=== PATIENT | male | born 1955 | race Caucasian/White ===

== ENCOUNTER 2016-12-06 16:24 | Emergency (ER) | payer OTHER ==
--- NOTE | 2016-12-06 17:46 | DIAGNOSTIC IMAGING REPORT ---
PROCEDURE: XR HAND 3 OR 4 VIEWS - LEFT INDICATION: TRAUMA/INJURY TECHNIQUE: Four views. COMPARISON: None. FINDINGS: No fracture dislocation. Punctate radiopaque foreign bodies in the tip of the index finger. There is diffuse mild soft tissue swelling of the second finger. 1.5 mm round metallic foreign body along the lateral aspect of the second MCP joint and 5 mm linear metallic foreign body in the hypothenar eminence. IMPRESSION: 1. No fracture 2. Several foreign bodies
--- NOTE | 2016-12-06 18:05 | ED NURSING NOTES ---
Clinical Report - Nurses [facility] [address] [place] [address] 12/06/2016 16:25 Patient: ANGELY MCKEON TRIAGE Triage time 16:38 Dec 06 2016. Acuity: LEVEL 3. Chief Complaint: INJURY TO LEFT HAND. Alert. No acute distress. --16:43 Sonny Casillas R.N. 16:38 12/06/16. BP: 158/90. HR: 80. RR: 16. O2 saturation: 95% on room air. Temp: 98.2 F. Pain level now: 02/15. --16:43 Sonny Casillas R.N. Weight: 108.8 kg stated. Height/Length: 72 inches Per Patient. BMI: 32.6. --16:38 Sonny Casillas R.N. Medications Meloxicam Oral. --16:40 Sonny Casillas R.N. Atorvastatin Calcium Oral. --16:40 Sonny Casillas R.N. Levothyroxine Sodium Oral. --16:40 Sonny Casillas R.N. Allergies No Known Drug Allergy. --16:40 Sonny Casillas R.N. History Arrived by private vehicle. Historian: patient. This occurred just prior to arrival and today. 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 PAST MEDICAL HX: Tetanus status: unknown. Immunizations: up-to-date. SOCIAL HX: Never smoker. No alcohol use or drug use. No infectious disease exposure. FALL RISK ASSESSMENT: Fall risk assessment completed. No fall risk identified. NUTRITIONAL RISK ASSESSMENT: The nutritional risk assessment revealed no deficiencies. FUNCTIONAL ASSESSMENT: Functional assessment: no impairments noted. LEARNING NEEDS ASSESSMENT: The learning needs assessment revealed no barriers. SKIN INTEGRITY ASSESSMENT: Skin integrity risk assessment completed. No skin integrity risk identified. --16:43 Sonny Casillas R.N. PROBLEMS: Chest Wall Pain. Hyperlipidemia. Thyroid Disease. Immunizations. Hypercholesterolemia. Pulmonary pnuemontis. --16:41 Sonny Casillas R.N. Hip arthritis. --16:42 Sonny Casillas R.N. Macular Degeneration. --17:33 Sonny Casillas R.N. ADDITIONAL SURGERIES: Rhinoplasty. Shoulder Surgery. Tonsillectomy. --16:41 Sonny Casillas R.N. Interventions ID band on patient. To treatment room. --16:43 Sonny Casillas R.N. PHYSICAL ASSESSMENT Ambulatory to room. GENERAL / NEURO / PSYCH: Oriented X 4. Appears in pain. EXTREMITIES: Capillary refill is less than 2 seconds in the extremities. Extremity pulses are within normal limits. Left hand: laceration with controlled bleeding localized to the dorsal aspect of the hand. ( Pt lacks posterior movement of the L index finger). SKIN: Skin is warm and dry. Large-sized laceration to left hand. --16:45 Sonny Casillas R.N. NURSING PROGRESS NOTES The plan of care for this patient has been created. Extremity elevated. Reassurance given. Wound cleansed with sterile saline and Hibiclens. Patient identifiers checked. Call light placed in reach. Side rails up. Patient ready for evaluation- PA notified. ( PA at bedside assessing Pt.). --16:45 Sonny Casillas R.N. 16:53 12/06/2016 Site #1 started via IV in the right antecubital space with an 20g angiocath; one attempt. Saline lock flushed with 10 mL saline. --16:53 Sonny Casillas R.N. Patient transported to radiology by stretcher with tech. --16:53 Sonny Casillas R.N. 17:03 12/06/2016 Lidocaine-Epinephrine (Lidocaine-Epinephrine) Injection Injectable 2 % given. Allergies verified and confirmed 5 rights. (L hand lac site given by PA). --17:18 Sonny Casillas R.N. 17:13 12/06/2016 TDAP IM 0.5 mL given. (Lot#: [id number], expiration date: 11/16/2018, Assembling Motor Builder: sanofi pasteur). Given in the right deltoid. Allergies verified and confirmed 5 rights. --17:13 Sonny Casillas R.N. 17:17 12/06/2016 Toradol IV 30 mg (NOW) was refused by patient because of concern over the side effects. Sonny Casillas --17:17 Sonny Casillas R.N. Patient returned from radiology by stretcher with tech. (17:10 Dec 06 2016). --17:18 Sonny Casillas R.N. ( Pt refusing Toradol d/t hx of Macular Degeneration and bleeding in his eyes.). --17:19 Sonny Casillas R.N. ( Paged Dr. Benito for P.A. [phone]). --17:21 Brittani Cari, ER Tech1 Wound irrigated with 1000 mL sterile NS; patient tolerated procedure well. --17:24 Eleazar Babb, ER Tech1 17:25 12/06/16. BP: 129/92. HR: 79. RR: 18. O2 saturation: 97% on room air. Pain level now: 02/15. --17:26 Sonny Casillas R.N. 17:30 12/06/2016 Dilaudid (HYDROmorphone HCl PF) IVP 1 mg given over 2 minute(s) via site #1. Allergies verified, confirmed 5 rights and sedative warning given to the patient. IV patency established. IV site checked: no pain, redness, or swelling. IV flushed thoroughly pre- and post-medication administration. IVP given by RN. --17:30 Sonny Casillas R.N. 17:56 12/06/2016 Started 2 gm of Ancef (CeFAZolin Sodium) IVPB in bag #1 50 mL; at 100 mL/hr over 30 minute(s) via site #1 via IV pump. Allergies verified and confirmed 5 rights. IV patency established. IV site checked: no pain, redness, or swelling. IV flushed thoroughly pre- and post-medication administration. Completed per protocol. --17:56 Sonny Casillas R.N. 17:56 12/06/2016 Dilaudid IVP Response: no adverse reaction pain is improving. Symptoms have improved. --17:56 Sonny Casillas R.N. 17:56 12/06/16. Pain level now: 09/15. --17:56 Sonny Casillas R.N. 18:12 12/06/2016 TDAP IM Response: no adverse reaction. --18:12 Sonny Casillas R.N. 18:16 12/06/2016 Lidocaine-Epinephrine Injection Response: no adverse reaction. --18:16 Sonny Casillas R.N. Applied clean dressing consisting of telfa pad, following the application of antibiotic ointment (bacitracin). Secured with tape and kerlix. --18:28 Sarkis Babbah, Tech1 Volar fiberglass upper extremity splint applied to left hand by tech. Distal pulses intact, sensation intact and motor within normal limits. --18:29 Sarkis Babbah, ER Tech1 18:22 12/06/2016 Ancef IVPB Discontinued: bag #1 infused upon discharge. Total amount infused: 100 mL. IV patency established. IV site checked: no pain, redness, or swelling. IV flushed thoroughly. --18:32 Sonny Casillas R.N. 18:27 12/06/2016 Site #1 removed upon discharge. Bandage applied. --18:32 Sonny Casillas R.N. DISPOSITION / DISCHARGE 18:13 12/06/16. BP: 151/96. HR: 62. RR: 16. O2 saturation: 95% on room air. Temp: unable to obtain. Pain level now: 09/15. --18:15 Sonny Casillas R.N. Condition at departure: improved and stable. The goals identified in the patient's plan of care were met. No learning barriers present. Discharge instructions provided and reviewed with the patient and family. Reviewed warnings (Pt instructed not to drive or consume ETOH while taking Hydrocodone.). Reviewed medication(s) side effects, precautions, dosing and course information. Prescription(s) given to the patient (Clindamycin and Hydrocodone). Reviewed referral to a hand surgeon for followup (Dr. Benito). Patient and family verbalized understanding. Written instructions provided in Serbian. The patient was discharged home and accompanied by table runner. He left the Emergency Department ambulatory and via private vehicle. Transition Of Care Specialist driving. ( Pt left in stable condition, ambulatory, pain controlled, verbalized understanding of DC plan of care. Ride home present for DC teaching.). --18:32 Sonny Casillas R.N. Departure time: 18:30 Dec 06 2016. --18:32 Sonny Casillas R.N. Locked/Released at 12/06/2016 19:22 by Sonny Casillas R.N.
--- NOTE | 2016-12-06 18:05 | ED CLINICAL REPORT ---
Clinical Report - Physicians/Mid Levels [facility] [address] [place] [address] 12/06/2016 16:25 [id number] Time Seen: 17:05 Dec 06 2016. Arrived- By private vehicle. Historian- patient. HISTORY OF PRESENT ILLNESS Chief Complaint: Injury to the left hand. The injury happened just prior to arrival. Occurred at home. The patient sustained a laceration. Patient is experiencing mild pain. 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 No prior injury to the dorsal hand. Unsure last tetanus. Believes he may have sustained an injury to his tendon). REVIEW OF SYSTEMS The patient sustained a laceration. He has had numbness. No tingling. All systems otherwise negative, except as recorded above. PAST HISTORY The patient's dominant hand is the right. He has not had a prior injury to the same area. Tetanus immunization status is unknown. SOCIAL HISTORY Never smoker. No alcohol use or drug use. ADDITIONAL NOTES The nursing notes have been reviewed. PHYSICAL EXAM Vital Signs: 12/06/2016 16:38 BP: 158/90. HR: 80. RR: 16. O2 saturation: 95%. Temp: 98.2 F. Pain level now: 8/10. Appearance: Alert. No acute distress. Head: Head atraumatic. CVS: Normal heart rate and rhythm. Heart sounds normal. Respiratory: No respiratory distress. Breath sounds normal. Skin: Skin warm. Extremities: Dorsal left hand: 2.0 cm laceration of the radial aspect of the dorsal hand. Limited extension of the index finger secondary to weakness. Neurovascular intact distally. No puncture wound or foreign body. Soft tissue tenderness present. No bony tenderness. No signs of infection present. Neuro, Vascular and Tendons: Vascular status intact. Functional tendon deficit. Complete extensor tendon injury seen in left index finger. Neuro: Oriented X 3. PROGRESS AND PROCEDURES Laceration Repair: Time: 1800 Dec 06 2016. Location: (left hand). Time-out completed immediately before the procedure. Length: 2.0cm. Complexity: simple (local anesthesia used and sutured). Neuro/vascular/tendon status: motor deficit present distally. Tendon deficit present. Tendon injury and laceration present. No sensory deficit or vascular deficit distally. Local anesthesia provided using 1% lidocaine with epi. Prepped with Betadine. Wound explored, cleansed and irrigated extensively with normal saline. Subcutaneous closure: interrupted 5-0 (4, non absorb). Post-procedure: he is stable and there are no complications. Bleeding is controlled and neuro-vascular status is intact distal to the wound. Dressing applied. Tetanus immunization given. Splint Application: Time: 18:17 Dec 06 2016. Fiberglass volar splint applied to left hand. Splint applied with direct supervision by me. Reassessed extremity following splint application. Neurovascular intact. Follow-up recommended for tomorrow. Course of Care: patient with a tendon injury, with good distal sensation. With good perfusion. No signs of fracture overlying the site of laceration. Patient given antibiotics in the emergency department. Discussed case with Dr. Coombs, or so inventory control/shipping receiving, who reports he does not operate on and hands. Discussed case with Dr. Benito, who will see the patient tomorrow. 12/06/2016 18:13 BP: 151/96. HR: 62. RR: 16. O2 saturation: 95%. Pain level now: 3/10. 12/06/2016 17:56 Pain level now: 310. Patient is stable. Symptoms better. Patient/family counseled. Disposition: Discharged. Condition: good. CLINICAL IMPRESSION Complete tendon laceration of the left extensor of the second finger. Laceration is at the level of the hand. No infection present or foreign body present. INSTRUCTIONS Elevate affected areas above chest level. (call Dr. Benito office tomorrow morning [phone]). Warnings: TETANUS: You were given a tetanus shot during your visit. Make a note for future reference. Prescription Medications: Hydrocodone/APAP 5mg / 325mg: take 1 orally every 6 hours as needed for pain. Dispense twenty (20). No refill. Clindamycin 300 mg: take 1 capsule orally every 8 hours for 10 days. No refill. (Electronically signed by Melinda Ko P.A.-C 12/06/2016 18:20)
--- NOTE | 2016-12-06 18:05 | ED CLINICAL REPORT ---
Clinical Report - Physicians/Mid Levels [facility] [address] [place] [address] 12/06/2016 16:25 [id number] Time Seen: 17:05 Dec 06 2016. Arrived- By private vehicle. Historian- patient. HISTORY OF PRESENT ILLNESS Chief Complaint: Injury to the left hand. The injury happened just prior to arrival. Occurred at home. The patient sustained a laceration. Patient is experiencing mild pain. 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 No prior injury to the dorsal hand. Unsure last tetanus. Believes he may have sustained an injury to his tendon). REVIEW OF SYSTEMS The patient sustained a laceration. He has had numbness. No tingling. All systems otherwise negative, except as recorded above. PAST HISTORY The patient's dominant hand is the right. He has not had a prior injury to the same area. Tetanus immunization status is unknown. SOCIAL HISTORY Never smoker. No alcohol use or drug use. ADDITIONAL NOTES The nursing notes have been reviewed. PHYSICAL EXAM Vital Signs: 12/06/2016 16:38 BP: 158/90. HR: 80. RR: 16. O2 saturation: 95%. Temp: 98.2 F. Pain level now: 8/10. Appearance: Alert. No acute distress. Head: Head atraumatic. CVS: Normal heart rate and rhythm. Heart sounds normal. Respiratory: No respiratory distress. Breath sounds normal. Skin: Skin warm. Extremities: Dorsal left hand: 2.0 cm laceration of the radial aspect of the dorsal hand. Limited extension of the index finger secondary to weakness. Neurovascular intact distally. No puncture wound or foreign body. Soft tissue tenderness present. No bony tenderness. No signs of infection present. Neuro, Vascular and Tendons: Vascular status intact. Functional tendon deficit. Complete extensor tendon injury seen in left index finger. Neuro: Oriented X 3. PROGRESS AND PROCEDURES Laceration Repair: Time: 1800 Dec 06 2016. Location: (left hand). Time-out completed immediately before the procedure. Length: 2.0cm. Complexity: simple (local anesthesia used and sutured). Neuro/vascular/tendon status: motor deficit present distally. Tendon deficit present. Tendon injury and laceration present. No sensory deficit or vascular deficit distally. Local anesthesia provided using 1% lidocaine with epi. Prepped with Betadine. Wound explored, cleansed and irrigated extensively with normal saline. Subcutaneous closure: interrupted 5-0 (4, non absorb). Post-procedure: he is stable and there are no complications. Bleeding is controlled and neuro-vascular status is intact distal to the wound. Dressing applied. Tetanus immunization given. Splint Application: Time: 18:17 Dec 06 2016. Fiberglass volar splint applied to left hand. Splint applied with direct supervision by me. Reassessed extremity following splint application. Neurovascular intact. Follow-up recommended for tomorrow. Course of Care: patient with a tendon injury, with good distal sensation. With good perfusion. No signs of fracture overlying the site of laceration. Patient given antibiotics in the emergency department. Discussed case with Dr. Coombs, or so strong nitric operator, who reports he does not operate on and hands. Discussed case with Dr. Benito, who will see the patient tomorrow. 12/06/2016 18:13 BP: 151/96. HR: 62. RR: 16. O2 saturation: 95%. Pain level now: 3/10. 12/06/2016 17:56 Pain level now: 310. Patient is stable. Symptoms better. Patient/family counseled. Disposition: Discharged. Condition: good. CLINICAL IMPRESSION Complete tendon laceration of the left extensor of the second finger. Laceration is at the level of the hand. No infection present or foreign body present. INSTRUCTIONS Elevate affected areas above chest level. (call Dr. Benito office tomorrow morning [phone]). Warnings: TETANUS: You were given a tetanus shot during your visit. Make a note for future reference. Prescription Medications: Hydrocodone/APAP 5mg / 325mg: take 1 orally every 6 hours as needed for pain. Dispense twenty (20). No refill. Clindamycin 300 mg: take 1 capsule orally every 8 hours for 10 days. No refill. (Electronically signed by Melinda Ko P.A.-C 12/06/2016 18:20)
--- NOTE | 2016-12-06 18:05 | ED NURSING NOTES ---
Clinical Report - Nurses [facility] [address] [place] [place] [address] 12/06/2016 16:25 Patient: ANGELY MCKEON TRIAGE Triage time 16:38 Dec 06 2016. Acuity: LEVEL 3. Chief Complaint: INJURY TO LEFT HAND. Alert. No acute distress. --16:43 Sonny Casillas R.N. 16:38 12/06/16. BP: 158/90. HR: 80. RR: 16. O2 saturation: 95% on room air. Temp: 98.2 F. Pain level now: 02/15. --16:43 Sonny Casillas R.N. Weight: 108.8 kg stated. Height/Length: 72 inches Per Patient. BMI: 32.6. --16:38 Sonny Casillas R.N. Medications Meloxicam Oral. --16:40 Sonny Casillas R.N. Atorvastatin Calcium Oral. --16:40 Sonny Casillas R.N. Levothyroxine Sodium Oral. --16:40 Sonny Casillas R.N. Allergies No Known Drug Allergy. --16:40 Sonny Casillas R.N. History Arrived by private vehicle. Historian: patient. This occurred just prior to arrival and today. 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 PAST MEDICAL HX: Tetanus status: unknown. Immunizations: up-to-date. SOCIAL HX: Never smoker. No alcohol use or drug use. No infectious disease exposure. FALL RISK ASSESSMENT: Fall risk assessment completed. No fall risk identified. NUTRITIONAL RISK ASSESSMENT: The nutritional risk assessment revealed no deficiencies. FUNCTIONAL ASSESSMENT: Functional assessment: no impairments noted. LEARNING NEEDS ASSESSMENT: The learning needs assessment revealed no barriers. SKIN INTEGRITY ASSESSMENT: Skin integrity risk assessment completed. No skin integrity risk identified. --16:43 Sonny Casillas R.N. PROBLEMS: Chest Wall Pain. Hyperlipidemia. Thyroid Disease. Immunizations. Hypercholesterolemia. Pulmonary pnuemontis. --16:41 Sonny Casillas R.N. Hip arthritis. --16:42 Sonny Casillas R.N. Macular Degeneration. --17:33 Sonny Casillas R.N. ADDITIONAL SURGERIES: Rhinoplasty. Shoulder Surgery. Tonsillectomy. --16:41 Sonny Casillas R.N. Interventions ID band on patient. To treatment room. --16:43 Sonny Casillas R.N. PHYSICAL ASSESSMENT Ambulatory to room. GENERAL / NEURO / PSYCH: Oriented X 4. Appears in pain. EXTREMITIES: Capillary refill is less than 2 seconds in the extremities. Extremity pulses are within normal limits. Left hand: laceration with controlled bleeding localized to the dorsal aspect of the hand. ( Pt lacks posterior movement of the L index finger). SKIN: Skin is warm and dry. Large-sized laceration to left hand. --16:45 Sonyn Casillas R.N. NURSING PROGRESS NOTES The plan of care for this patient has been created. Extremity elevated. Reassurance given. Wound cleansed with sterile saline and Hibiclens. Patient identifiers checked. Call light placed in reach. Side rails up. Patient ready for evaluation- PA notified. ( PA at bedside assessing Pt.). --16:45 Sonny Casillas R.N. 16:53 12/06/2016 Site #1 started via IV in the right antecubital space with an 20g angiocath; one attempt. Saline lock flushed with 10 mL saline. --16:53 Sonny Casillas R.N. Patient transported to radiology by stretcher with tech. --16:53 Sonny Casillas R.N. 17:03 12/06/2016 Lidocaine-Epinephrine (Lidocaine-Epinephrine) Injection Injectable 2 % given. Allergies verified and confirmed 5 rights. (L hand lac site given by PA). --17:18 Sonny Casillas R.N. 17:13 12/06/2016 TDAP IM 0.5 mL given. (Lot#: [id number], expiration date: 11/16/2018, Circuit Design Engineer: sanofi pasteur). Given in the right deltoid. Allergies verified and confirmed 5 rights. --17:13 Sonny Casillas R.N. 17:17 12/06/2016 Toradol IV 30 mg (NOW) was refused by patient because of concern over the side effects. Sonny Casillas --17:17 Sonny Casillas R.N. Patient returned from radiology by stretcher with tech. (17:10 Dec 06 2016). --17:18 Sonny Casillas R.N. ( Pt refusing Toradol d/t hx of Macular Degeneration and bleeding in his eyes.). --17:19 Sonny Casillas R.N. ( Paged Dr. Benito for P.A. [phone]). --17:21 Brittani Cari, ER Tech1 Wound irrigated with 1000 mL sterile NS; patient tolerated procedure well. --17:24 Eleazar Babb, ER Tech1 17:25 12/06/16. BP: 129/92. HR: 79. RR: 18. O2 saturation: 97% on room air. Pain level now: 02/15. --17:26 Sonny Casillas R.N. 17:30 12/06/2016 Dilaudid (HYDROmorphone HCl PF) IVP 1 mg given over 2 minute(s) via site #1. Allergies verified, confirmed 5 rights and sedative warning given to the patient. IV patency established. IV site checked: no pain, redness, or swelling. IV flushed thoroughly pre- and post-medication administration. IVP given by RN. --17:30 Sonny Casillas R.N. 17:56 12/06/2016 Started 2 gm of Ancef (CeFAZolin Sodium) IVPB in bag #1 50 mL; at 100 mL/hr over 30 minute(s) via site #1 via IV pump. Allergies verified and confirmed 5 rights. IV patency established. IV site checked: no pain, redness, or swelling. IV flushed thoroughly pre- and post-medication administration. Completed per protocol. --17:56 Sonny Casillas R.N. 17:56 12/06/2016 Dilaudid IVP Response: no adverse reaction pain is improving. Symptoms have improved. --17:56 Sonny Casillas R.N. 17:56 12/06/16. Pain level now: 09/15. --17:56 Sonny Casillas R.N. 18:12 12/06/2016 TDAP IM Response: no adverse reaction. --18:12 Sonny Casillas R.N. 18:16 12/06/2016 Lidocaine-Epinephrine Injection Response: no adverse reaction. --18:16 Sonny Casillas R.N. Applied clean dressing consisting of telfa pad, following the application of antibiotic ointment (bacitracin). Secured with tape and kerlix. --18:28 Sarkis Babbah, Tech1 Volar fiberglass upper extremity splint applied to left hand by tech. Distal pulses intact, sensation intact and motor within normal limits. --18:29 Sarkis Babbah, ER Tech1 18:22 12/06/2016 Ancef IVPB Discontinued: bag #1 infused upon discharge. Total amount infused: 100 mL. IV patency established. IV site checked: no pain, redness, or swelling. IV flushed thoroughly. --18:32 Sonny Casillas R.N. 18:27 12/06/2016 Site #1 removed upon discharge. Bandage applied. --18:32 Sonny Casillas R.N. DISPOSITION / DISCHARGE 18:13 12/06/16. BP: 151/96. HR: 62. RR: 16. O2 saturation: 95% on room air. Temp: unable to obtain. Pain level now: 09/15. --18:15 Sonny Casillas R.N. Condition at departure: improved and stable. The goals identified in the patient's plan of care were met. No learning barriers present. Discharge instructions provided and reviewed with the patient and family. Reviewed warnings (Pt instructed not to drive or consume ETOH while taking Hydrocodone.). Reviewed medication(s) side effects, precautions, dosing and course information. Prescription(s) given to the patient (Clindamycin and Hydrocodone). Reviewed referral to a hand surgeon for followup (Dr. Benito). Patient and family verbalized understanding. Written instructions provided in Kyrgyz. The patient was discharged home and accompanied by tool lathe operator. He left the Emergency Department ambulatory and via private vehicle. Recreation Technician driving. ( Pt left in stable condition, ambulatory, pain controlled, verbalized understanding of DC plan of care. Ride home present for DC teaching.). --18:32 Sonny Casillas R.N. Departure time: 18:30 Dec 06 2016. --18:32 Sonny Casillas R.N. Locked/Released at 12/06/2016 19:22 by Sonny Casillas R.N.
--- NOTE | 2016-12-06 18:05 | ED ORDER SUMMARY ---
..... Patient: ANGELY MCKEON OrderSheet [facility] VisitID: [id number] [place] [address] 61y, M Registration Date/Time: 12/06/2016 ORDER SHEET Weight: 108.8 kg (stated) Allergies: No Known Drug Allergy GENERAL ORDERS: Hand 3 or 4V Left Urgent (16:50 12/06/2016 EKoroleva P.A.-C) (Ack 16:56 LNations ER Tech1) (16:59 RFay) Splint (UE) (Left) (volar) (17:46 12/06/2016 EKoroleva P.A.-C) (17:57 MCook R.N.) MEDICATION ORDERS: Lidocaine-Epinephrine Injection 2 % (soln) (NOW, place at bedside, with syringes & needles) (16:46 12/06/2016 EKoroleva P.A.-C) (Ack 16:53 MCook R.N.) (17:18 MCook R.N.) Tdap IM 0.5 mL (NOW, per protocol) (16:50 12/06/2016 EKoroleva P.A.-C) (Ack 16:53 MCook R.N.) (17:13 MCook R.N.) IV FLUIDS: Toradol IV 30 mg (NOW) (16:50 12/06/2016 EKoroleva P.A.-C) (Ack 16:53 MCook R.N.) (Cancelled: Patient Hnotcuw16:22 MCook R.N.) Ancef IV 2 gm/100mL (NOW) (17:24 12/06/2016 EKoroleva P.A.-C) (Ack 17:34 MCook R.N.) (17:56 MCook R.N.) Dilaudid IV 1 mg (HIGH ALERT MEDICATION, NOW) (17:24 12/06/2016 EKoroleva P.A.-C) (17:30 MCook R.N.) ORDER SHEET NOTES: [Electronically signed by Melinda KoADimas (18:20 12/06/2016)] [Electronically signed by Sonny Casillas R.N. (12/06/2016)] [Electronically locked/signed by Sonny Casillas R.N. (12/06/2016)]
--- NOTE | 2016-12-06 18:05 | ED ORDER SUMMARY ---
..... Patient: ANGELY MCKEON OrderSheet [facility] VisitID: [id number] [place] [address] 61y, M Registration Date/Time: 12/06/2016 ORDER SHEET Weight: 108.8 kg (stated) Allergies: No Known Drug Allergy GENERAL ORDERS: Hand 3 or 4V Left Urgent (16:50 12/06/2016 EKoroleva P.A.-C) (Ack 16:56 LNations ER Tech1) (16:59 RFay) Splint (UE) (Left) (volar) (17:46 12/06/2016 EKoroleva P.A.-C) (17:57 MCook R.N.) MEDICATION ORDERS: Lidocaine-Epinephrine Injection 2 % (soln) (NOW, place at bedside, with syringes & needles) (16:46 12/06/2016 EKoroleva P.A.-C) (Ack 16:53 MCook R.N.) (17:18 MCook R.N.) Tdap IM 0.5 mL (NOW, per protocol) (16:50 12/06/2016 EKoroleva P.A.-C) (Ack 16:53 MCook R.N.) (17:13 MCook R.N.) IV FLUIDS: Toradol IV 30 mg (NOW) (16:50 12/06/2016 EKoroleva P.A.-C) (Ack 16:53 MCook R.N.) (Cancelled: Patient Lkxovct81:22 MCook R.N.) Ancef IV 2 gm/100mL (NOW) (17:24 12/06/2016 EKoroleva P.A.-C) (Ack 17:34 MCook R.N.) (17:56 MCook R.N.) Dilaudid IV 1 mg (HIGH ALERT MEDICATION, NOW) (17:24 12/06/2016 EKoroleva P.A.-C) (17:30 MCook R.N.) ORDER SHEET NOTES: [Electronically signed by Melinda KoADimas (18:20 12/06/2016)] [Electronically signed by Sonny Casillas R.N. (12/06/2016)] [Electronically locked/signed by Sonny Casillas R.N. (12/06/2016)]
--- NOTE | 2016-12-06 19:23 | ED MAR SUMMARY ---
..... Medication Administration Record [facility] [address] [place] [address] Patient: ANGELY MCKEON Visit ID: [id number] 61y, M Weight: 108.8 kg Height/Length: 72 in BMI: 32.6 ALLERGIES: No Known Drug Allergy Given 17:03 12/06/2016 Sonny Casillas R.N. Medication Administered: LIDOCAINE-EPINEPHRINE [INJECTION] (LIDOCAINE-EPINEPHRINE), Dose: 2 % Injectable Injection. Medication Ordered: Lidocaine-Epinephrine Injection 2 % (soln) (NOW, place at bedside, with syringes & needles). Given 17:13 12/06/2016 Sonny Casillas R.N. Medication Administered: TDAP [IM], Dose: 0.5 mL IM. Medication Ordered: Tdap IM 0.5 mL (NOW, per protocol). Given 17:30 12/06/2016 Sonny Casillas R.N. Medication Administered: DILAUDID [IVP] (HYDROMORPHONE HCL PF), Dose: 1 mg IVP over 2 minute(s), Site: #1 right AC. Medication Ordered: Dilaudid IV 1 mg (HIGH ALERT MEDICATION, NOW). Start 17:56 12/06/2016 Sonny Casillas R.N., Stop 18:22 12/06/2016 Sonny Casillas R.N. Medication Administered: ANCEF [IVPB] (CEFAZOLIN SODIUM), Dose: 2 gm IVPB over 30 minute(s), Rate: 100 mL/hr, Dispensed: 50 mL bag, Site: #1 right AC. Medication Ordered: Ancef IV 2 gm/100mL (NOW).
--- NOTE | 2016-12-06 19:23 | ED MED RECONCILIATION SUMMARY ---
Patient: ANGELY MCKEON Medication Reconciliation Report [facility] VisitID: [id number] [address] [place] [address] 61y, M Registration Date/Time: 12/06/2016 Weight: 108.8 kg Height/Length: 72 in. BMI: 32.6 ALLERGIES: No Known Drug Allergy The patient's Home Medications are listed below: THE FOLLOWING MEDICATIONS NEED TO BE RECONCILED: Atorvastatin Calcium Oral Levothyroxine Sodium Oral Meloxicam Oral The source(s) of the original Home Medication information: Not obtained. The following Medications were given to the patient in the Emergency Department: TDAP [IM] IM 0.5 mL, administered: 12/06/2016 5:13:00 PM Lidocaine-Epinephrine [Injection] Injection 2 %, administered: 12/06/2016 5:03:00 PM Dilaudid [IVP] IVP 1 mg, administered: 12/06/2016 5:30:00 PM Ancef [IVPB] IVPB bolus 0, then 2 gm 100 mL/hr, administered: 12/06/2016 5:56:00 PM The following Medications were prescribed to the patient: Hydrocodone/APAP 5mg / 325mg: take 1 orally every 6 hours as needed for pain. Dispense twenty (20). No refill. -- Melinda Ko, P.A.-Elif Clindamycin 300 mg: take 1 capsule orally every 8 hours for 10 days. No refill. -- Melinda Ko P.A.-C
--- NOTE | 2016-12-06 19:23 | ED MED RECONCILIATION SUMMARY ---
Patient: ANGELY MCKEON Medication Reconciliation Report [facility] VisitID: [id number] [address] [place] [address] 61y, M Registration Date/Time: 12/06/2016 Weight: 108.8 kg Height/Length: 72 in. BMI: 32.6 ALLERGIES: No Known Drug Allergy The patient's Home Medications are listed below: THE FOLLOWING MEDICATIONS NEED TO BE RECONCILED: Atorvastatin Calcium Oral Levothyroxine Sodium Oral Meloxicam Oral The source(s) of the original Home Medication information: Not obtained. The following Medications were given to the patient in the Emergency Department: TDAP [IM] IM 0.5 mL, administered: 12/06/2016 5:13:00 PM Lidocaine-Epinephrine [Injection] Injection 2 %, administered: 12/06/2016 5:03:00 PM Dilaudid [IVP] IVP 1 mg, administered: 12/06/2016 5:30:00 PM Ancef [IVPB] IVPB bolus 0, then 2 gm 100 mL/hr, administered: 12/06/2016 5:56:00 PM The following Medications were prescribed to the patient: Hydrocodone/APAP 5mg / 325mg: take 1 orally every 6 hours as needed for pain. Dispense twenty (20). No refill. -- Melinda Ko, P.A.-Elif Clindamycin 300 mg: take 1 capsule orally every 8 hours for 10 days. No refill. -- Melinda Ko P.A.-C
--- NOTE | 2016-12-06 19:23 | ED DISCHARGE INSTRUCTIONS ---
Patient: ANGELY MCKEON General Instructions [facility] VisitID: [id number] [place] [address] 61y, M Registration Date/Time: 12/06/2016 Complete tendon laceration of the left extensor of the second finger. Laceration is at the level of the hand. No infection present or foreign body present. INSTRUCTIONS Elevate affected areas above chest level. (call Dr. Benito office tomorrow morning [phone]). Warnings: TETANUS: You were given a tetanus shot during your visit. Make a note for future reference. Prescription Medications: Hydrocodone/APAP 5mg / 325mg: take 1 orally every 6 hours as needed for pain. Dispense twenty (20). No refill. Clindamycin 300 mg: take 1 capsule orally every 8 hours for 10 days. No refill. ADDITIONAL INFORMATION Laceration, Tendon A tendon is a thick cord that joins muscle to bone and causes the joints to bend and straighten. One of your tendons has been cut. A tendon cut may be partial or complete. A complete cut of the tendon and a severe partial cut will need stitches (sutures) in the tendon. Smaller cuts in the tendon do not require stitches; however, the cut in the skin will need to be closed with stitches or lela. A cut tendon takes about 6 weeks to regain its full strength. Forceful use of the tendon too soon could cause the weakened tendon to tear apart. Antibiotics may be prescribed to reduce the risk of infection in the tendon. Some tendons are located close to the nerves, therefore, it is possible to bruise or cut a nerve when you injure a tendon. This may cause numbness or weakness of the hand or foot. Because of local pain and swelling at the time of injury it can be difficult to fully assess nerve function. If you notice numbness or weakness that persists, notify your doctor. A nerve repair can be done 5-10 days after injury. Home Care: Keep the injured part elevated during the first 48 hours to reduce swelling and pain. If a splint was applied, leave it in place until your next exam (unless told otherwise). Keep the part dry when bathing by covering it in a plastic bag sealed with a rubber band at the top end. If no splint was applied, you may change the bandage after 24 hours and begin cleaning the wound once a day with soap and water. After removing the bandage, wash the area with soap and water. Use a wet cotton swab (Q tip) to loosen and remove any blood or crust that forms.After cleaning, apply a thin layer of [id number] antibiotic ointment. This will keep the wound clean and make it easier to remove the stitches or lela. Reapply a fresh bandage. You may remove the bandage to shower as usual after the first 24 hours, but do not soak the area in water (no swimming) until the stitches or lela are removed. If antibiotics were prescribed, take them until they are gone. You may use acetaminophen (Tylenol) or ibuprofen (Motrin, Advil) to control pain, unless another pain medicine was prescribed. [ NOTE : If you have chronic liver or kidney disease or ever had a stomach ulcer or GI bleeding, talk with your doctor before using these medicines.] Follow Up: Most skin wounds heal within ten days. However, an infection may sometimes occur despite proper treatment. Therefore, check your wound daily f or the warning signs listed below. Stitches placed in the tendon will not need to be removed. Stitches or lela placed in the skin will be removed in 7-10 days. Be sure to keep your appointment for removal. At your follow up visit, talk to your doctor about when to begin exercising the tendon in order to prevent stiffness. Notify your doctor if you notice persistent numbness or weakness in the injured extremity.We will notify you of any new findings that may affect your care. Get Prompt Medical Attention If Any Of The Following Occur: Increasing pain in the wound Redness, swelling or pus coming from the wound Fever of 100.4F (38C) or higher, or as directed by your healthcare provider Stitches or lela come apart or fall out before your next appointment Bleeding is not controlled by direct pressure Diphtheria Toxoid Adsorbed, Pertussis Vaccine, Acellular (Adsorbed), Tetanus Toxoid, Adsorbed Suspension for injection What is this medicine? DIPHTHERIA and TETANUS TOXOIDS; PERTUSSIS VACCINE (dif THEER ee uh and TET n us TOK soids; per TUS iss vak SEEN) is used to prevent diphtheria, tetanus, and pertussis infections. How should I use this medicine? This vaccine is for injection into a muscle. It is given by a health rn palliative care. A copy of Vaccine Information Statements will be given before each vaccination. Read this sheet carefully each time. The sheet may change frequently. Talk to your kitchen designer regarding the use of this vaccine in children. While the DTP vaccine may be given to children ages 6 weeks to 7 years and the Tdap vaccine may be given to children at least 10 years old, precautions do apply. What side effects may I notice from receiving this medicine? Side effects that you should report to your doctor or health rn palliative care as soon as possible: allergic reactions like skin rash, itching or hives, swelling of the face, lips, or tongue breathing problems fever of 103 degrees F or more flu-like symptoms inconsolable crying infection pain, tingling, numbness in the hands or feet seizures swelling of arm or leg that was injected unusually weak or tired Side effects that usually do not require immediate medical attention (report these side effects to your doctor or health rn palliative care if they continue or are bothersome): fussy, irritable loss of appetite fever of 102 degrees F or less pain, tenderness, redness, swelling, or a 'knot' at site where injected vomiting What may interact with this medicine? immune globulin medicines that suppress your immune function like adalimumab, anakinra, infliximab medicines to treat cancer medicines that treat or prevent blood clots like warfarin, enoxaparin, and dalteparin steroid medicines like prednisone or cortisone What if I miss a dose? It is important not to miss your dose. Call your doctor or health rn palliative care if you are unable to keep an appointment. Where should I keep my medicine? This drug is given in a hospital or clinic and will not be stored at home. What should I tell my health care provider before I take this medicine? They need to know if you have any of these conditions: blood disorders like hemophilia fever or infection immune system problems neurologic disease seizures an unusual or allergic reaction to vaccines, thimerosal, latex, other medicines, foods, dyes, or preservatives or trying to get breast-feeding What should I watch for while using this medicine? See your health care provider for all shots of this vaccine as directed. To have protection from infection, you must have 3 shots of this vaccine plus boosters as needed. Tell your doctor right away if you have any serious or unusual side effects after getting this vaccine. Hydrocodone Bitartrate, Acetaminophen Oral tablet What is this medicine? ACETAMINOPHEN; HYDROCODONE (a set a LEORA ling fen; janene droe KOE done) is a pain reliever. It is used to treat mild to moderate pain. How should I use this medicine? Take this medicine by mouth. Swallow it with a full glass of water. Follow the directions on the prescription label. If the medicine upsets your stomach, take the medicine with food or milk. Do not take more than you are told to take. Talk to your kitchen designer regarding the use of this medicine in children. This medicine is not approved for use in children. What side effects may I notice from receiving this medicine? Side effects that you should report to your doctor or health rn palliative care as soon as possible: allergic reactions like skin rash, itching or hives, swelling of the face, lips, or tongue breathing problems confusion feeling faint or lightheaded, falls stomach pain yellowing of the eyes or skin Side effects that usually do not require medical attention (report to your doctor or health rn palliative care if they continue or are bothersome): nausea, vomiting stomach upset What may interact with this medicine? alcohol antihistamines isoniazid medicines for depression, anxiety, or psychotic disturbances medicines for sleep muscle relaxants naltrexone narcotic medicines (opiates) for pain phenobarbital ritonavir tramadol What if I miss a dose? If you miss a dose, take it as soon as you can. If it is almost time for your next dose, take only that dose. Do not take double or extra doses. Where should I keep my medicine? Keep out of the reach of children. This medicine can be abused. Keep your medicine in a safe place to protect it from theft. Do not share this medicine with anyone. Selling or giving away this medicine is dangerous and against the law. Store at room temperature between 15 and 30 degrees C (59 and 86 degrees F). Protect from light. Keep container tightly closed. Throw away any unused medicine after the expiration date. Discard unused medicine and used packaging carefully. Pets and children can be harmed if they find used or lost packages. What should I tell my health care provider before I take this medicine? They need to know if you have any of these conditions: brain tumor Crohn's disease, inflammatory bowel disease, or ulcerative colitis drink more than 3 alcohol-containing drinks per day drug abuse or addiction head injury heart or circulation problems kidney disease or problems going to the bathroom liver disease lung disease, asthma, or breathing problems an unusual or allergic reaction to acetaminophen, hydrocodone, other opioid analgesics, other medicines, foods, dyes, or preservatives or trying to get breast-feeding What should I watch for while using this medicine? Tell your doctor or health rn palliative care if your pain does not go away, if it gets worse, or if you have new or a different type of pain. You may develop tolerance to the medicine. Tolerance means that you will need a higher dose of the medicine for pain relief. Tolerance is normal and is expected if you take the medicine for a long time. Do not suddenly stop taking your medicine because you may develop a severe reaction. Your body becomes used to the medicine. This does NOT mean you are addicted. Addiction is a behavior related to getting and using a drug for a non-medical reason. If you have pain, you have a medical reason to take pain medicine. Your doctor will tell you how much medicine to take. If your doctor wants you to stop the medicine, the dose will be slowly lowered over time to avoid any side effects. You may get drowsy or dizzy when you first start taking the medicine or change doses. Do not drive, use machinery, or do anything that may be dangerous until you know how the medicine affects you. Stand or sit up slowly. There are different types of narcotic medicines (opiates) for pain. If you take more than one type at the same time, you may have more side effects. Give your health care provider a list of all medicines you use. Your doctor will tell you how much medicine to take. Do not take more medicine than directed. Call emergency for help if you have problems breathing. The medicine will cause constipation. Try to have a bowel movement at least every 2 to 3 days. If you do not have a bowel movement for 3 days, call your doctor or health rn palliative care. Too much acetaminophen can be very dangerous. Do not take Tylenol (acetaminophen) or medicines that contain acetaminophen with this medicine. Many non-prescription medicines contain acetaminophen. Always read the labels carefully. You have been given the following additional information: Laceration, Tendon Diphtheria Toxoid Adsorbed, Pertussis Vaccine, Acellular (Adsorbed), Tetanus Toxoid, Adsorbed Suspension for injection Hydrocodone Bitartrate, Acetaminophen Oral tablet (Electronically signed by Melinda Ko P.A.-C 12/06/2016 18:20)
--- NOTE | 2016-12-06 19:23 | ED DISCHARGE INSTRUCTIONS ---
Patient: ANGELY MCKEON General Instructions [facility] VisitID: [id number] [place] [address] 61y, M Registration Date/Time: 12/06/2016 Complete tendon laceration of the left extensor of the second finger. Laceration is at the level of the hand. No infection present or foreign body present. INSTRUCTIONS Elevate affected areas above chest level. (call Dr. Benito office tomorrow morning [phone]). Warnings: TETANUS: You were given a tetanus shot during your visit. Make a note for future reference. Prescription Medications: Hydrocodone/APAP 5mg / 325mg: take 1 orally every 6 hours as needed for pain. Dispense twenty (20). No refill. Clindamycin 300 mg: take 1 capsule orally every 8 hours for 10 days. No refill. ADDITIONAL INFORMATION Laceration, Tendon A tendon is a thick cord that joins muscle to bone and causes the joints to bend and straighten. One of your tendons has been cut. A tendon cut may be partial or complete. A complete cut of the tendon and a severe partial cut will need stitches (sutures) in the tendon. Smaller cuts in the tendon do not require stitches; however, the cut in the skin will need to be closed with stitches or leal. A cut tendon takes about 6 weeks to regain its full strength. Forceful use of the tendon too soon could cause the weakened tendon to tear apart. Antibiotics may be prescribed to reduce the risk of infection in the tendon. Some tendons are located close to the nerves, therefore, it is possible to bruise or cut a nerve when you injure a tendon. This may cause numbness or weakness of the hand or foot. Because of local pain and swelling at the time of injury it can be difficult to fully assess nerve function. If you notice numbness or weakness that persists, notify your doctor. A nerve repair can be done 5-10 days after injury. Home Care: Keep the injured part elevated during the first 48 hours to reduce swelling and pain. If a splint was applied, leave it in place until your next exam (unless told otherwise). Keep the part dry when bathing by covering it in a plastic bag sealed with a rubber band at the top end. If no splint was applied, you may change the bandage after 24 hours and begin cleaning the wound once a day with soap and water. After removing the bandage, wash the area with soap and water. Use a wet cotton swab (Q tip) to loosen and remove any blood or crust that forms.After cleaning, apply a thin layer of [id number] antibiotic ointment. This will keep the wound clean and make it easier to remove the stitches or lela. Reapply a fresh bandage. You may remove the bandage to shower as usual after the first 24 hours, but do not soak the area in water (no swimming) until the stitches or lela are removed. If antibiotics were prescribed, take them until they are gone. You may use acetaminophen (Tylenol) or ibuprofen (Motrin, Advil) to control pain, unless another pain medicine was prescribed. [ NOTE : If you have chronic liver or kidney disease or ever had a stomach ulcer or GI bleeding, talk with your doctor before using these medicines.] Follow Up: Most skin wounds heal within ten days. However, an infection may sometimes occur despite proper treatment. Therefore, check your wound daily f or the warning signs listed below. Stitches placed in the tendon will not need to be removed. Stitches or lela placed in the skin will be removed in 7-10 days. Be sure to keep your appointment for removal. At your follow up visit, talk to your doctor about when to begin exercising the tendon in order to prevent stiffness. Notify your doctor if you notice persistent numbness or weakness in the injured extremity.We will notify you of any new findings that may affect your care. Get Prompt Medical Attention If Any Of The Following Occur: Increasing pain in the wound Redness, swelling or pus coming from the wound Fever of 100.4F (38C) or higher, or as directed by your healthcare provider Stitches or lela come apart or fall out before your next appointment Bleeding is not controlled by direct pressure Diphtheria Toxoid Adsorbed, Pertussis Vaccine, Acellular (Adsorbed), Tetanus Toxoid, Adsorbed Suspension for injection What is this medicine? DIPHTHERIA and TETANUS TOXOIDS; PERTUSSIS VACCINE (dif THEER ee uh and TET n us TOK soids; per TUS iss vak SEEN) is used to prevent diphtheria, tetanus, and pertussis infections. How should I use this medicine? This vaccine is for injection into a muscle. It is given by a health family day care provider. A copy of Vaccine Information Statements will be given before each vaccination. Read this sheet carefully each time. The sheet may change frequently. Talk to your form coverer regarding the use of this vaccine in children. While the DTP vaccine may be given to children ages 6 weeks to 7 years and the Tdap vaccine may be given to children at least 10 years old, precautions do apply. What side effects may I notice from receiving this medicine? Side effects that you should report to your doctor or health family day care provider as soon as possible: allergic reactions like skin rash, itching or hives, swelling of the face, lips, or tongue breathing problems fever of 103 degrees F or more flu-like symptoms inconsolable crying infection pain, tingling, numbness in the hands or feet seizures swelling of arm or leg that was injected unusually weak or tired Side effects that usually do not require immediate medical attention (report these side effects to your doctor or health family day care provider if they continue or are bothersome): fussy, irritable loss of appetite fever of 102 degrees F or less pain, tenderness, redness, swelling, or a 'knot' at site where injected vomiting What may interact with this medicine? immune globulin medicines that suppress your immune function like adalimumab, anakinra, infliximab medicines to treat cancer medicines that treat or prevent blood clots like warfarin, enoxaparin, and dalteparin steroid medicines like prednisone or cortisone What if I miss a dose? It is important not to miss your dose. Call your doctor or health family day care provider if you are unable to keep an appointment. Where should I keep my medicine? This drug is given in a hospital or clinic and will not be stored at home. What should I tell my health care provider before I take this medicine? They need to know if you have any of these conditions: blood disorders like hemophilia fever or infection immune system problems neurologic disease seizures an unusual or allergic reaction to vaccines, thimerosal, latex, other medicines, foods, dyes, or preservatives or trying to get breast-feeding What should I watch for while using this medicine? See your health care provider for all shots of this vaccine as directed. To have protection from infection, you must have 3 shots of this vaccine plus boosters as needed. Tell your doctor right away if you have any serious or unusual side effects after getting this vaccine. Hydrocodone Bitartrate, Acetaminophen Oral tablet What is this medicine? ACETAMINOPHEN; HYDROCODONE (a set a LEORA ling fen; janene droe KOE done) is a pain reliever. It is used to treat mild to moderate pain. How should I use this medicine? Take this medicine by mouth. Swallow it with a full glass of water. Follow the directions on the prescription label. If the medicine upsets your stomach, take the medicine with food or milk. Do not take more than you are told to take. Talk to your form coverer regarding the use of this medicine in children. This medicine is not approved for use in children. What side effects may I notice from receiving this medicine? Side effects that you should report to your doctor or health family day care provider as soon as possible: allergic reactions like skin rash, itching or hives, swelling of the face, lips, or tongue breathing problems confusion feeling faint or lightheaded, falls stomach pain yellowing of the eyes or skin Side effects that usually do not require medical attention (report to your doctor or health family day care provider if they continue or are bothersome): nausea, vomiting stomach upset What may interact with this medicine? alcohol antihistamines isoniazid medicines for depression, anxiety, or psychotic disturbances medicines for sleep muscle relaxants naltrexone narcotic medicines (opiates) for pain phenobarbital ritonavir tramadol What if I miss a dose? If you miss a dose, take it as soon as you can. If it is almost time for your next dose, take only that dose. Do not take double or extra doses. Where should I keep my medicine? Keep out of the reach of children. This medicine can be abused. Keep your medicine in a safe place to protect it from theft. Do not share this medicine with anyone. Selling or giving away this medicine is dangerous and against the law. Store at room temperature between 15 and 30 degrees C (59 and 86 degrees F). Protect from light. Keep container tightly closed. Throw away any unused medicine after the expiration date. Discard unused medicine and used packaging carefully. Pets and children can be harmed if they find used or lost packages. What should I tell my health care provider before I take this medicine? They need to know if you have any of these conditions: brain tumor Crohn's disease, inflammatory bowel disease, or ulcerative colitis drink more than 3 alcohol-containing drinks per day drug abuse or addiction head injury heart or circulation problems kidney disease or problems going to the bathroom liver disease lung disease, asthma, or breathing problems an unusual or allergic reaction to acetaminophen, hydrocodone, other opioid analgesics, other medicines, foods, dyes, or preservatives or trying to get breast-feeding What should I watch for while using this medicine? Tell your doctor or health family day care provider if your pain does not go away, if it gets worse, or if you have new or a different type of pain. You may develop tolerance to the medicine. Tolerance means that you will need a higher dose of the medicine for pain relief. Tolerance is normal and is expected if you take the medicine for a long time. Do not suddenly stop taking your medicine because you may develop a severe reaction. Your body becomes used to the medicine. This does NOT mean you are addicted. Addiction is a behavior related to getting and using a drug for a non-medical reason. If you have pain, you have a medical reason to take pain medicine. Your doctor will tell you how much medicine to take. If your doctor wants you to stop the medicine, the dose will be slowly lowered over time to avoid any side effects. You may get drowsy or dizzy when you first start taking the medicine or change doses. Do not drive, use machinery, or do anything that may be dangerous until you know how the medicine affects you. Stand or sit up slowly. There are different types of narcotic medicines (opiates) for pain. If you take more than one type at the same time, you may have more side effects. Give your health care provider a list of all medicines you use. Your doctor will tell you how much medicine to take. Do not take more medicine than directed. Call emergency for help if you have problems breathing. The medicine will cause constipation. Try to have a bowel movement at least every 2 to 3 days. If you do not have a bowel movement for 3 days, call your doctor or health family day care provider. Too much acetaminophen can be very dangerous. Do not take Tylenol (acetaminophen) or medicines that contain acetaminophen with this medicine. Many non-prescription medicines contain acetaminophen. Always read the labels carefully. You have been given the following additional information: Laceration, Tendon Diphtheria Toxoid Adsorbed, Pertussis Vaccine, Acellular (Adsorbed), Tetanus Toxoid, Adsorbed Suspension for injection Hydrocodone Bitartrate, Acetaminophen Oral tablet (Electronically signed by Melinda Ko P.A.-C 12/06/2016 18:20)
--- NOTE | 2016-12-06 19:23 | ED MAR SUMMARY ---
..... Medication Administration Record [facility] [address] [place] [address] Patient: ANGELY MCKEON Visit ID: [id number] 61y, M Weight: 108.8 kg Height/Length: 72 in BMI: 32.6 ALLERGIES: No Known Drug Allergy Given 17:03 12/06/2016 Sonny Casillas R.N. Medication Administered: LIDOCAINE-EPINEPHRINE [INJECTION] (LIDOCAINE-EPINEPHRINE), Dose: 2 % Injectable Injection. Medication Ordered: Lidocaine-Epinephrine Injection 2 % (soln) (NOW, place at bedside, with syringes & needles). Given 17:13 12/06/2016 Sonny Casillas R.N. Medication Administered: TDAP [IM], Dose: 0.5 mL IM. Medication Ordered: Tdap IM 0.5 mL (NOW, per protocol). Given 17:30 12/06/2016 Sonny Casillas R.N. Medication Administered: DILAUDID [IVP] (HYDROMORPHONE HCL PF), Dose: 1 mg IVP over 2 minute(s), Site: #1 right AC. Medication Ordered: Dilaudid IV 1 mg (HIGH ALERT MEDICATION, NOW). Start 17:56 12/06/2016 Sonny Casillas R.N., Stop 18:22 12/06/2016 Sonny Casillas R.N. Medication Administered: ANCEF [IVPB] (CEFAZOLIN SODIUM), Dose: 2 gm IVPB over 30 minute(s), Rate: 100 mL/hr, Dispensed: 50 mL bag, Site: #1 right AC. Medication Ordered: Ancef IV 2 gm/100mL (NOW).
== END 2016-12-06 18:32 | disposition home or self-care (01) ==
LOC: ED SRH 16:24
DX: S66.321A Laceration of extensor muscle, fascia and tendon of left index finger at wrist and hand level, initial encounter (principal); W29.8XXA Contact with other powered hand tools and household machinery, initial encounter; Y93.44 Activity, trampolining; Y92.009 Unspecified place in unspecified non-institutional (private) residence as the place of occurrence of the external cause; Y99.8 Other external cause status; Z23 Encounter for immunization; E78.5 Hyperlipidemia, unspecified

== ENCOUNTER 2016-12-11 20:20 | Emergency (ER) | payer OTHER ==
--- NOTE | 2016-12-12 20:55 | ED MED RECONCILIATION SUMMARY ---
Patient: ANGELY MCKEON Medication Reconciliation Report [facility] VisitID: [id number] [address] [place] [address] 61y, M Registration Date/Time: 12/11/2016 Weight: 104.3 kg Height/Length: 72 in. BMI: 31.2 ALLERGIES: No Known Drug Allergy The patient's Home Medications are listed below: THE FOLLOWING MEDICATIONS NEED TO BE RECONCILED: Atorvastatin Calcium Oral Levothyroxine Sodium Oral Meloxicam Oral The source(s) of the original Home Medication information: Not obtained. The following Medications were given to the patient in the Emergency Department: None. The following Medications were prescribed to the patient: None.
--- NOTE | 2016-12-12 20:55 | ED MAR SUMMARY ---
..... Medication Administration Record [facility] [address] [place], [place] [id number] Patient: ANGELY MCKEON Visit ID: [id number] 61y, M Weight: 104.3 kg Height/Length: 72 in BMI: 31.2 ALLERGIES: No Known Drug Allergy
--- NOTE | 2016-12-12 20:55 | ED CLINICAL REPORT ---
Clinical Report - Physicians/Mid Levels [facility] [address] [place] [address] 12/11/2016 20:19 Patient: ANGELY MCKEON Time Seen: 20:30. Arrived- By private vehicle. Historian- patient. HISTORY OF PRESENT ILLNESS Chief Complaint: WOUND RECHECK. PROGRESS AND PROCEDURES Course of Care: I introduced myself to the patient and was then called out of the room for a more critical issue. When I returned about 20 minutes later, he apparently eloped. - MERLY. (Electronically signed by Terence Medellin MD 12/12/2016 20:54)
--- NOTE | 2016-12-12 20:55 | ED CLINICAL REPORT ---
Clinical Report - Physicians/Mid Levels [facility] [address] [place] [address] 12/11/2016 20:19 Patient: ANGELY MCKEON Time Seen: 20:30. Arrived- By private vehicle. Historian- patient. HISTORY OF PRESENT ILLNESS Chief Complaint: WOUND RECHECK. PROGRESS AND PROCEDURES Course of Care: I introduced myself to the patient and was then called out of the room for a more critical issue. When I returned about 20 minutes later, he apparently eloped. - MERLY. (Electronically signed by Terence Medellin MD 12/12/2016 20:54)
--- NOTE | 2016-12-12 20:55 | ED MED RECONCILIATION SUMMARY ---
Patient: ANGELY MCKEON Medication Reconciliation Report [facility] VisitID: [id number] [address] [place] [address] 61y, M Registration Date/Time: 12/11/2016 Weight: 104.3 kg Height/Length: 72 in. BMI: 31.2 ALLERGIES: No Known Drug Allergy The patient's Home Medications are listed below: THE FOLLOWING MEDICATIONS NEED TO BE RECONCILED: Atorvastatin Calcium Oral Levothyroxine Sodium Oral Meloxicam Oral The source(s) of the original Home Medication information: Not obtained. The following Medications were given to the patient in the Emergency Department: None. The following Medications were prescribed to the patient: None.
--- NOTE | 2016-12-12 20:55 | ED NURSING NOTES ---
Clinical Report - Nurses [place] [address] [place] [address] 12/11/2016 20:19 Patient: ANGELY MCKEON TRIAGE Triage time 20:27. Acuity: LEVEL 4. Chief Complaint: LEFT UPPER EXTREMITY PAIN, SWELLING and REDNESS. --20:34 Ivelisse Walter R.N. 20:27 12/11/16. BP: 142/106 taken on the left arm, while lying. HR: 73 (regular and normal rate). RR: 18. O2 saturation: 99%. Temp: 98 F (oral). Pain level now: 10/16. --20:34 Ivelisse Walter R.N. Weight: 104.3 kg stated. Height/Length: 72 inches Per Patient. BMI: 31.2. --20:30 Ivelisse Walter R.N. Medications Atorvastatin Calcium Oral. --20:33 Ivelisse Walter R.N. Levothyroxine Sodium Oral. Meloxicam Oral. --20:33 Ivelisse Walter R.N. Allergies No Known Drug Allergy. --20:33 Ivelisse Walter R.N. History Arrived by private vehicle. Historian: patient. Unaccompanied. Primary physician ([facility]). Injury occurred. This occurred (6 days ago). ( wound recheck, for injury to left hand from 6 days ago, pt reports cramping to hand). Treatment [employer]: Performed wound care and applied splint. Recently seen in a medical facility; treatment- pain medication and antibiotic. PAST MEDICAL HX: Tetanus status: up-to-date. Immunizations: up-to-date. SOCIAL HX: Never smoker. No alcohol use or drug use. No infectious disease exposure. ABUSE ASSESSMENT: No report of abuse. SELF HARM ASSESSMENT: A self harm assessment was performed. The patient answered "no" to the question "Have you recently felt down, depressed, or hopeless?", "Have you noticed less interest or pleasure in doing things?", "Do you have thoughts of harming or killing yourself?", "Are you here because you tried to hurt yourself?", "Have you ever tried to hurt yourself before today?", "Have you recently had thoughts about harming or killing others?" and "Do you have any dangerous items in your possession?". FALL RISK ASSESSMENT: Fall risk assessment completed. No fall risk identified. NUTRITIONAL RISK ASSESSMENT: The nutritional risk assessment revealed no deficiencies. FUNCTIONAL ASSESSMENT: Functional assessment: no impairments noted. LEARNING NEEDS ASSESSMENT: The learning needs assessment revealed no barriers. SKIN INTEGRITY ASSESSMENT: Skin integrity risk assessment completed. No skin integrity risk identified. --20:34 Ivelisse Walter R.N. The patient has had swelling and redness. --20:34 Ivelisse Walter R.N. PROBLEMS: Tendon Laceration. Macular Degeneration. Hip arthritis. Chest Wall Pain. Hyperlipidemia. Thyroid Disease. Immunizations. Hypercholesterolemia. Pulmonary pnuemontis. --20:33 Ivelisse Walter R.N. ADDITIONAL SURGERIES: Rhinoplasty. Shoulder Surgery. Tonsillectomy. --20:33 Ivelisse Walter R.N. Interventions ID band on patient. --20:34 Ivelisse aWlter R.N. PHYSICAL ASSESSMENT Ambulatory to room. GENERAL / NEURO / PSYCH: Oriented X 4. Alert. Appears in no acute distress. CVS: Capillary refill is greater than 2 seconds. EXTREMITIES: Erythema on the extremities. Edema of the left upper extremity involving the hand. Neuro-vascular status intact to the extremity. Left hand: tenderness, swelling and erythema localized to the dorsal aspect of the hand. SKIN: Single sutured, tender and draining wound present on the left hand. Skin intact. Skin is warm and dry. --20:38 Ivelisse Walter R.N. NURSING PROGRESS NOTES Two patient identifiers checked. Call light placed in reach. Side rails up x 1. Bed placed in lowest position. Brakes of bed on. Patient ready for evaluation- chart flagged. --20:39 Ivelisse Walter R.N. DISPOSITION / DISCHARGE The patient left the Emergency Department without being seen by a physician; patient was unaccompanied. The patient appears to be alert and oriented x4. He stated is leaving the ED (unknown). Notified the ED physician of patient departure. He left the Emergency Department ambulatory and via private vehicle. ( physician went in to eval and pt was gone, waited to see if pt returned registration stated pt left building). --21:38 Ivelisse Walter R.N. 21:35 12/11/16. BP: deferred due to patient not present. HR: deferred due to patient not present. RR: deferred due to patient not present. O2 saturation: deferred due to patient not present. Temp: deferred due to patient not present. Pain level now deferred due to patient not present. --21:38 Ivelisse Walter R.N. Departure time: 21:20. --21:38 Ivelisse Walter R.N. Locked/Released at 12/11/2016 21:38 by Ivelisse Walter R.N.
--- NOTE | 2016-12-12 20:55 | ED MAR SUMMARY ---
..... Medication Administration Record [facility] [address] [place], [place] [id number] Patient: ANGELY MCKEON Visit ID: [id number] 61y, M Weight: 104.3 kg Height/Length: 72 in BMI: 31.2 ALLERGIES: No Known Drug Allergy
--- NOTE | 2016-12-12 20:55 | ED NURSING NOTES ---
Clinical Report - Nurses [place] [address] [place] [address] 12/11/2016 20:19 Patient: ANGELY MCKEON TRIAGE Triage time 20:27. Acuity: LEVEL 4. Chief Complaint: LEFT UPPER EXTREMITY PAIN, SWELLING and REDNESS. --20:34 Ivelisse Walter R.N. 20:27 12/11/16. BP: 142/106 taken on the left arm, while lying. HR: 73 (regular and normal rate). RR: 18. O2 saturation: 99%. Temp: 98 F (oral). Pain level now: 10/16. --20:34 Ivelisse Walter R.N. Weight: 104.3 kg stated. Height/Length: 72 inches Per Patient. BMI: 31.2. --20:30 Ivelisse Walter R.N. Medications Atorvastatin Calcium Oral. --20:33 Ivelisse Walter R.N. Levothyroxine Sodium Oral. Meloxicam Oral. --20:33 Ivelisse Walter R.N. Allergies No Known Drug Allergy. --20:33 Ivelisse Walter R.N. History Arrived by private vehicle. Historian: patient. Unaccompanied. Primary physician ([facility] Injury occurred. This occurred (6 days ago). ( wound recheck, for injury to left hand from 6 days ago, pt reports cramping to hand). 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 Recently seen in a medical facility; treatment- pain medication and antibiotic. PAST MEDICAL HX: Tetanus status: up-to-date. Immunizations: up-to-date. SOCIAL HX: Never smoker. No alcohol use or drug use. No infectious disease exposure. ABUSE ASSESSMENT: No report of abuse. SELF HARM ASSESSMENT: A self harm assessment was performed. The patient answered "no" to the question "Have you recently felt down, depressed, or hopeless?", "Have you noticed less interest or pleasure in doing things?", "Do you have thoughts of harming or killing yourself?", "Are you here because you tried to hurt yourself?", "Have you ever tried to hurt yourself before today?", "Have you recently had thoughts about harming or killing others?" and "Do you have any dangerous items in your possession?". FALL RISK ASSESSMENT: Fall risk assessment completed. No fall risk identified. NUTRITIONAL RISK ASSESSMENT: The nutritional risk assessment revealed no deficiencies. FUNCTIONAL ASSESSMENT: Functional assessment: no impairments noted. LEARNING NEEDS ASSESSMENT: The learning needs assessment revealed no barriers. SKIN INTEGRITY ASSESSMENT: Skin integrity risk assessment completed. No skin integrity risk identified. --20:34 Ivelisse Walter R.N. The patient has had swelling and redness. --20:34 Ivelisse Walter R.N. PROBLEMS: Tendon Laceration. Macular Degeneration. Hip arthritis. Chest Wall Pain. Hyperlipidemia. Thyroid Disease. Immunizations. Hypercholesterolemia. Pulmonary pnuemontis. --20:33 Ivelisse Walter R.N. ADDITIONAL SURGERIES: Rhinoplasty. Shoulder Surgery. Tonsillectomy. --20:33 Ivelisse Walter R.N. Interventions ID band on patient. --20:34 Ivelisse Walter R.N. PHYSICAL ASSESSMENT Ambulatory to room. GENERAL / NEURO / PSYCH: Oriented X 4. Alert. Appears in no acute distress. CVS: Capillary refill is greater than 2 seconds. EXTREMITIES: Erythema on the extremities. Edema of the left upper extremity involving the hand. Neuro-vascular status intact to the extremity. Left hand: tenderness, swelling and erythema localized to the dorsal aspect of the hand. SKIN: Single sutured, tender and draining wound present on the left hand. Skin intact. Skin is warm and dry. --20:38 Ivelisse Walter R.N. NURSING PROGRESS NOTES Two patient identifiers checked. Call light placed in reach. Side rails up x 1. Bed placed in lowest position. Brakes of bed on. Patient ready for evaluation- chart flagged. --20:39 Ivelisse Walter R.N. DISPOSITION / DISCHARGE The patient left the Emergency Department without being seen by a physician; patient was unaccompanied. The patient appears to be alert and oriented x4. He stated is leaving the ED (unknown). Notified the ED physician of patient departure. He left the Emergency Department ambulatory and via private vehicle. ( physician went in to eval and pt was gone, waited to see if pt returned registration stated pt left building). --21:38 Ivelisse Walter R.N. 21:35 12/11/16. BP: deferred due to patient not present. HR: deferred due to patient not present. RR: deferred due to patient not present. O2 saturation: deferred due to patient not present. Temp: deferred due to patient not present. Pain level now deferred due to patient not present. --21:38 Ivelisse Walter R.N. Departure time: 21:20. --21:38 Ivelisse Walter R.N. Locked/Released at 12/11/2016 21:38 by Ivelisse Walter R.N.
== END 2016-12-11 21:18 | disposition left against medical advice (07) ==
LOC: ED SRH 20:20
DX: Z53.21 Procedure and treatment not carried out due to patient leaving prior to being seen by health care provider (principal)